=== PATIENT | male | born 1955 | race Caucasian/White ===

== ENCOUNTER → 2016-12-07 | Outpatient (CLI) | payer OTHER ==
--- NOTE | 2016-12-07 17:01 | DIAGNOSTIC IMAGING REPORT ---
TWO VIEW CHEST CLINICAL HISTORY: Atypical chest pain. FINDINGS: PA and lateral chest radiographs are obtained. No prior studies are available for comparison at the time of dictation. The PA view is degraded by patient rotation. The cardiomediastinal silhouette is unremarkable. There is atherosclerotic calcification of the thoracic aorta. There is mild bibasilar atelectasis. The lungs and pleural spaces are otherwise clear. No pneumothorax is seen. The skeletal structures are osteopenic. The bony thorax is grossly intact. Degenerative change and scoliosis are noted throughout the thoracic spine. IMPRESSION: No active disease in the chest. Electronically signed by: Jeff Villarreal M.D. 12/07/2016 4:59 PM Dictated Date/Time: 12/07/2016 4:58 PM
--- NOTE | 2016-12-07 18:34 | DIAGNOSTIC IMAGING REPORT ---
CERVICAL SPINE 5 VIEWS CLINICAL HISTORY: Chronic neck pain. FINDINGS: AP, lateral, bilateral oblique, and odontoid views of the cervical spine are obtained. No prior studies are available for comparison at the time of dictation. The skeletal structures are osteopenic. There is no radiographic evidence of fracture or subluxation. The atlantodental articulation appears maintained. The odontoid processes and lateral masses are intact on the open-mouth view. Vertebral body height is maintained. There is minimal retrolisthesis at C3-C4. There is 4.5 mm of anterolisthesis at C4-C5. Alignment is otherwise preserved. Advanced degenerative disc space narrowing with endplate sclerosis is seen at C3-C4. Moderate disc space narrowing seen at C4-C5. The remaining disc spaces appear preserved. There is straightening of the cervical lordosis with reversal centered at C4-C5. The prevertebral soft tissues are within normal limits. Mild multilevel neural foraminal narrowing is seen bilaterally on the oblique views. Partially imaged apical lung parenchyma appears clear. There is advanced atherosclerotic calcification of the right carotid bulb. IMPRESSION: 1. No acute bony abnormality is seen involving the cervical spine. 2. Osteopenia and spondylotic change as detailed above. Dictated: 12/07/2016 4:56 PM Transcribed: 12/07/2016 6:33 PM [email or web address] Electronically signed by: Jeff Villarreal M.D. 12/07/2016 6:39 PM Dictated Date/Time: 12/07/2016 4:56 PM
== END | disposition home or self-care (01) ==
LOC: C.RAD 16:29
PROVIDERS: ATTEND Family Medicine
DX: R07.89 Other chest pain (principal)